=== PATIENT | male | born 1935 | race Two or more races ===

== ENCOUNTER 2022-08-12 18:27 | Emergency (ER) | payer OTHER ==
[2022-08-12 18:55] VITALS: PULSE 83; RESP 18; TEMP 98; BMI 23.2
[2022-08-12 20:19] LABS: BASO % 0.6 % (0-2.0); EOS % 4.5 % (0-4.5); HEMATOCRIT 41.5 % (35.4-49); LYMPH % 13.7 % (8-40); MCH 29.6 pg (25.7-33.7); MCHC 33.8 g/dl (32.0-35.9); MEAN CELL VOLUME 87.7 fl (80-96); MEAN PLT VOLUME 8.3 fl (7.5-11.1); MONO % 11.3 % (3.8-10.2); NEUT % 69.9 % (42.8-82.8); PLATELET COUNT 220 10^3/uL (134-434); RBC 4.74 M/mm3 (4.00-5.60); RDW 13.5 % (11.9-15.9); WHITE BLOOD COUNT 6.8 K/mm3 (4.0-10.0)
[2022-08-12 20:32] LABS: ACTIVATED PTT 32.2 SECONDS (25.2-36.5); INR 1.11 (0.83-1.09); PROTHROMBIN TIME (PATIENT) 12.8 SEC (9.7-13.0)
[2022-08-12 20:37] LABS: CHLORIDE 106 mmol/L (98-107); SODIUM 139 mmol/L (136-145)
[2022-08-12 20:41] LABS: CALCIUM 9.6 mg/dL (8.5-10.1)
[2022-08-12 20:42] LABS: ALBUMIN 3.9 g/dl (3.4-5.0); BLOOD UREA NITROGEN 21.2 mg/dL (7-18); CO2 24 mmol/L (21-32); GLUCOSE,RANDOM 105 mg/dL (74-106)
[2022-08-12 20:45] LABS: CREATININE 1.8 mg/dL (0.55-1.3); SGOT/AST 49 U/L (15-37); SGPT/ALT 22 U/L (13-61)
[2022-08-12 20:46] LABS: BILIRUBIN,TOTAL 1.7 mg/dL (0.2-1); TOT PROT 8.2 g/dl (6.4-8.2)
[2022-08-12 20:48] LABS: ALK PHOS 111 U/L (45-117)
[2022-08-12 20:49] LABS: N-TERMINAL BNP 3612.2 pg/ml (5-450)
[2022-08-12 20:57] LABS: ANION GAP 10 MMOL/L (8-16)
[2022-08-12] MEDS ORDERED: FUROSEMIDE 40 MG/4 ML INJECTABLE VIAL IVPUSH ONE (23:27)
[2022-08-13] MEDS ORDERED: FUROSEMIDE 40 MG TABLET (FP) PO ONE (00:01)
[2022-08-13] MEDS ORDERED: FUROSEMIDE 40 MG TABLET (FP) ONE (00:01)
[2022-08-13 00:09] VITALS: BP 146/90
== END 2022-08-12 22:50 | disposition home or self-care (01) ==
LOC: JER 18:27
DX: I50.9 Heart failure, unspecified (principal)
CPT/HCPCS: 0241U-QW; 36415; 71046-TC-FY; 80053; 83880; 84132; 84484; 85025; 85610; 85730; 93005; 93010; 99285-25